=== PATIENT | female | born 2000 | race Caucasian/White ===

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

== ENCOUNTER 2018-09-17 11:37 | Emergency (ER) | payer OTHER ==
[~2018-09-17] VITALS: Ht 152.4 cm; Wt 40.8 kg
[2018-09-17] MEDS ORDERED: KETO10 PO (12:02)
== END 2018-09-17 12:07 | disposition home or self-care (01) ==
LOC: ER 11:37
DX: M94.0 Chondrocostal junction syndrome [Tietze] (principal); Z91.018 Allergy to other foods; Z88.8 Allergy status to other drugs, medicaments and biological substances; F17.210 Nicotine dependence, cigarettes, uncomplicated; F31.9 Bipolar disorder, unspecified; F90.9 Attention-deficit hyperactivity disorder, unspecified type
CPT/HCPCS: 99282

== ENCOUNTER → 2019-08-30 | Outpatient (CLI) | payer OTHER ==
[~2019-08-30] MED LIST changes: +KETO10 PO
== END ==
LOC: LAB SHORT 14:38 → LAB EV 14:38
DX: R35.8 Other polyuria (principal)
CPT/HCPCS: 87086

== ENCOUNTER 2019-09-14 20:30 | Emergency (ER) | payer OTHER ==
[~2019-09-14] VITALS: Ht 152.4 cm; Wt 40.4 kg
[2019-09-14] MEDS ORDERED: Triamcinolone A15 G3 TOP (21:37)
== END 2019-09-14 21:48 | disposition home or self-care (01) ==
LOC: ER 20:30
DX: T23.432A Corrosion of unspecified degree of multiple left fingers (nail), not including thumb, initial encounter (principal); T23.431A Corrosion of unspecified degree of multiple right fingers (nail), not including thumb, initial encounter; Z23 Encounter for immunization; F17.210 Nicotine dependence, cigarettes, uncomplicated; Z91.018 Allergy to other foods; Z88.8 Allergy status to other drugs, medicaments and biological substances
CPT/HCPCS: 90471; 90714; 99282-25

== ENCOUNTER 2022-12-29 22:40 | Emergency (ER) | payer SELFPAY ==
[~2022-12-29] VITALS: Ht 152.4 cm; Wt 46.3 kg
[~2022-12-29 22:40] MED LIST changes: +Triamcinolone A15 G3 TOP
[2022-12-29 23:41] VITALS: BP 103/72
== END 2022-12-30 00:34 | disposition home or self-care (01) ==
LOC: ER 22:40
DX: S81.811A Laceration without foreign body, right lower leg, initial encounter (principal); W25.XXXA Contact with sharp glass, initial encounter; Z88.8 Allergy status to other drugs, medicaments and biological substances; Z91.018 Allergy to other foods; F17.210 Nicotine dependence, cigarettes, uncomplicated
CPT/HCPCS: 99282

== ENCOUNTER 2025-04-15 00:02 | Emergency (ER) | payer OTHER ==
[~2025-04-15] VITALS: Ht 152.4 cm; Wt 42.6 kg
[2025-04-15 00:34] VITALS: BP 114/71
== END 2025-04-15 01:09 | disposition left against medical advice (07) ==
LOC: ER 00:02
DX: T39.1X1A Poisoning by 4-Aminophenol derivatives, accidental (unintentional), initial encounter (principal); Z53.21 Procedure and treatment not carried out due to patient leaving prior to being seen by health care provider